=== PATIENT | female | born 1950 | race Caucasian/White ===

== ENCOUNTER 2017-04-23 06:31 | Day surgery (SDC) | payer OTHER ==
[~2017-04-23] VITALS: Ht 167.6 cm; Wt 95.5 kg
[2017-04-23] VITALS (8 sets, daily range): BP systolic 91–147; BP diastolic 44–90; PULSE 53–94; RESP 16–20; TEMP 97.5; O2SAT 91–96
[~2017-04-23 06:31] MED LIST: ASPI81; BENI20TA25; ESTR1.25; MEDR2.5; SERT100
[2017-04-23] MEDS ORDERED: GELATIN 12 MM/7 MM FOAM ONE (06:32)
[2017-04-23] MEDS ORDERED: LOSA100T PO (06:51)
[2017-04-23] MEDS ORDERED: SERT-132 PO (06:51)
[2017-04-23] MEDS ORDERED: SODIUM CHLOR 0.9% 1000 ML INJ 1,000 ML IV SCH (07:15)
[2017-04-23] MEDS ORDERED: MIDAZOLAM HCL 2 MG/2 ML VIAL ONE (07:27)
[2017-04-23] MEDS ORDERED: fentaNYL CITRATE 250 MCG/5 ML AMP ONE (07:27)
[2017-04-23] MEDS ORDERED: LIDOCAINE HCL 1% 20 ML VIAL ONE (07:48)
--- NOTE | 2017-04-23 08:48 | PD.RAD ---
Post CT Procedure Prog Note Pre Procedure Diagnosis: (1) Liver mass Post Procedure Diagnosis: (1) Liver mass Procedure Date: Apr 23, 2017 Supervising Radiologist: Jermaine Rhodes Proceduralist/Assist: evin jo Estimated blood loss: none Anesthesia: Conscious Sedation Plan of Activity Patient to Unit: [facility] Patient Condition: Good See PACS Report for procedural detail/treatment Jermaine Rhodes MD Apr 23, 2017 08:48
--- NOTE | 2017-04-23 15:48 | RADRPT ---
EXAM DATE/TIME: 04/23/2017 08:25 [facility] COMPARISON: No previous studies available for comparison. INDICATIONS : Liver mass. SEDATION TIME: 30 minutes BIOPSY SITE: Right flank MEDICATION(S): 1.) 2.5 mg midazolam (Versed) IV 2.) 125 mcg fentanyl (Sublimaze) IV DEVICE(S): 1.) 19 gauge micropuncture introducer 2.) 20 gauge Temno core biopsy needle MEDICAL HISTORY : Hernia, hiatal. Hypertension. Liver mass, gallstones. SURGICAL HISTORY : None. ENCOUNTER: Initial ACUITY: 1 day PAIN SCORE: 0/10 LOCATION: Right flank A total of three core specimen(s) were obtained and sent to the laboratory for pathologic evaluation. PROCEDURE: 1. CT guided liver biopsy. Prior to the procedure informed consent was obtained. Any appropriate prior imaging studies were rev iewed. Using automated exposure control and adjustment of the mA and/or kV according to patient size, radiat ion dose was kept as low as reasonably achievable to obtain optimal diagnostic quality images. DICOM format image data is available electronically for review and comparison. The site was prepped in a sterile fashion. Full sterile technique was used, including cap, mask, maria teresa rile gloves and gown and a large sterile sheet. Hand hygiene and 2% chlorhexidine and/or betadine/al cohol prep was utilized per protocol for cutaneous antisepsis. The skin and subcutaneous tissues wer e infiltrated with local anesthetic solution. With CT guidance the previously identified target was localized. Biopsy was performed using the presc ribed needle as above. Adequate hemostasis was obtained with compression at the puncture site. Follow-up CT scan reveals no hemorrhage. Gelfoam was injected into the needle tract after the conclus ion of the biopsy. The patient tolerated the procedure well and there were no complications. The patient was returned to the Radiology Outpatient Unit in stable condition. CONCLUSION: Uncomplicated CT guided biopsy of the large mass in the right lobe. Jermaine Rhodes MD on April 23, 2017 at 15:45 Board Certified Radiologist. This report was verified electronically.
== END 2017-04-23 13:00 | disposition home or self-care (01) ==
LOC: HRAD 06:31 → HRIP 06:33 → HRAD 13:00
PROVIDERS: ATTEND Internal Medicine Gastroenterology
DX: C78.7 Secondary malignant neoplasm of liver and intrahepatic bile duct (principal); C80.1 Malignant (primary) neoplasm, unspecified; I10 Essential (primary) hypertension; E78.5 Hyperlipidemia, unspecified; K44.9 Diaphragmatic hernia without obstruction or gangrene
CPT/HCPCS: 47000; 77012; 88307; 88341; 88342; J2250; J3010; J7030

== ENCOUNTER 2017-05-21 08:29 | Day surgery (SDC) | payer OTHER ==
[~2017-05-21] VITALS: Ht 167.6 cm; Wt 93.6 kg
[~2017-05-21 08:29] MED LIST changes: -ASPI81; -BENI20TA25; -ESTR1.25; +LOSA100T PO; -MEDR2.5; +SERT-132 PO; -SERT100
[2017-05-21 08:45] VITALS: BP 117/72; PULSE 67; RESP 20; TEMP 97.7; O2SAT 97
[2017-05-21 09:23] LABS: AUTOMATED NEUTROPHIL # 4.1 TH/MM3 (1.8-7.7); BASOPHIL # 0.1 TH/MM3 (0-0.2); EOSINOPHIL # 0.2 TH/MM3 (0-0.4); EOSINOPHIL % 2.6 % (0.0-4.0); HEMATOCRIT 42.4 % (35.0-46.0); HEMOGLOBIN 15.3 GM/DL (11.6-15.3); LYMPH % 28.6 % (9.0-44.0); LYMPHOCYTE # 1.9 TH/MM3 (1.0-4.8); MEAN CELL VOLUME 88.8 FL (80.0-100.0); MEAN PLATELET VOLUME 9.4 FL (7.0-11.0); MONO % 6.4 % (0.0-8.0); MONOCYTE # 0.4 TH/MM3 (0-0.9); NEUT % 61.4 % (16.0-70.0); PLATELET COUNT 235 TH/MM3 (150-450); RED BLOOD COUNT 4.78 MIL/MM3 (4.00-5.30); WHITE BLOOD COUNT 6.7 TH/MM3 (4.0-11.0)
[2017-05-21] MEDS ORDERED: SODIUM CHLORIDE 0.9% 1000 ML IV SCH (09:30)
[2017-05-21] MEDS ORDERED: ceFAZolin 2 GM PREMIX 50 ML - implanted port/tunneled catheter insertion IV SCH (09:30)
[2017-05-21] MEDS ORDERED: VANCOMYCIN 1000 MG/NS 250 ML - implanted port/tunneled catheter IV SCH ×2 (09:30)
[2017-05-21] MEDS ORDERED: CHLORHEXIDINE GLUCONATE 2 % 1 PACK (2 CLOTHS) TOPICAL SCH (09:30)
[2017-05-21] MEDS ORDERED: POVIDONE IODINE 5% (ANTISEPSIS KIT) 4 APPLICATIONS EACH NARE SCH (09:30)
[2017-05-21] MEDS ORDERED: MIDAZOLAM HCL 5 MG/5 ML VIAL ONE (10:47)
[2017-05-21] MEDS ORDERED: fentaNYL CITRATE 250 MCG/5 ML AMP ONE (10:47)
[2017-05-21] MEDS ORDERED: LIDOCAINE 1%/EPINEPHrine 1:100,000 SOLN 30 ML VIAL ONE (11:09)
[2017-05-21 11:53] VITALS: BP 121/69; PULSE 59; RESP 18; TEMP 98.7; O2SAT 93
--- NOTE | 2017-05-21 11:53 | PD.RAD ---
Post Procedure Progress Note Pre Procedure Diagnosis: (1) Liver mass Post Procedure Diagnosis: (1) Liver mass Procedure Date: May 21, 2017 Supervising Radiologist: Lars Banks Proceduralist/Assist: Ayden Santana RT(R), RT Serafin(R)() Anesthesia: Conscious Sedation Plan of Activity Patient to Unit: [facility] Patient Condition: Good See PACS Report for procedural detail/treatment Lars Banks MD May 21, 2017 11:53
[2017-05-21 12:08] VITALS: BP 120/71; PULSE 73; RESP 17; O2SAT 99
[2017-05-21 12:38] VITALS: BP 124/74; PULSE 57; RESP 18; O2SAT 98
[2017-05-21 13:48] VITALS: BP 120/72; PULSE 64; RESP 17; O2SAT 98
--- NOTE | 2017-05-21 14:31 | RADRPT ---
EXAM DATE/TIME: 05/21/2017 10:56 [facility] COMPARISON: No previous studies available for comparison. INDICATIONS : Patient with history of liver cancer in need of port placement for chemotherapy. MEDICAL HISTORY : 1.Liver cancer 2.HTN 3.Hiatal hernia 4.Depression 5.Cervical cancer 6.Arthritis SURGICAL HISTORY : 1.Cervical cone biopsy 2.Bilateral knee surgery 3.Tosillectomy 4. ENCOUNTER: Initial ACUITY: 1 week PAIN SCORE: 0/10 FLUORO TIME: 0.2 minutes IMAGE SERIES: 1 SEDATION TIME: 30 minutes ACCESS: Right internal jugular vein SEDATION: 1.) 2 mg midazolam (Versed) IV 2.) 100 mcg fentanyl (Sublimaze) IV Prophylactic antibiotics were administered with appropriate pre-procedure timing. Vancomycin within 2 hours of procedure, Ancef (or alternative) within 1 hour of procedure. DEVICE: 1. 8 [place]ian single lumen Bard Power Port PROCEDURE : 1. Continuous pulse oximetry and EKG monitoring. 2. Intravenous conscious sedation. 3. Ultrasound guidance for venous access. 4. Fluoroscopic guided implantable central venous port placement. The patient was placed supine. The neck was prepped in sterile fashion. Full sterile technique was u sed, including cap, mask, sterile gloves and gown, and a large sterile sheet. Hand hygiene and 2% ch lorhexidine Betadine was utilized per protocol for cutaneous antisepsis with appropriate dry time for site. Sterile gel and sterile probe cover were utilized for ultrasound guidance. The skin and sub cutaneous tissues were infiltrated with local anesthetic solution. Under direct ultrasound guidance, central venous access was accomplished in the targeted vessel. The ultrasound images depicting access guidance were stored and saved to PACS for permanent record. A s ubcutaneous pocket was created using blunt dissection. The port was introduced to the pocket. The c atheter tubing was fed through a subcutaneous tunnel to the venotomy site. The catheter tubing was c ut to a suitable length and then was introduced through a valved Peel-Away sheath and positioned with catheter tubing tip at the cavo-atrial junction level. The pocket incision was closed with subcutic ular Vicryl suture. Steri-Strips were applied. The port was flushed and locked with heparin solutio n per protocol. Sterile dressing was applied to the site. The patient tolerated the procedure well. Conscious sedation was performed with the prescribed dosages and duration as above in the presence of an independent trained radiology nurse to assist in the monitoring of the patient. EKG and oximetry remained stable throughout the procedure. The patient tolerated the procedure well and there were no complications. The patient was sent to post anesthesia recovery in stable condition. CONCLUSION: Uncomplicated ultrasound and fluoroscopic guided implanted central venous port catheter placement as described in detail above. An 8 Georgian Power port was placed. Lars Banks MD on May 21, 2017 at 14:30 Board Certified Radiologist. This report was verified electronically.
== END 2017-05-21 14:00 | disposition home or self-care (01) ==
LOC: HRIP 08:29 → HROP 08:29
PROVIDERS: ATTEND Internal Medicine Hematology
DX: Z45.2 Encounter for adjustment and management of vascular access device (principal); C22.1 Intrahepatic bile duct carcinoma; I10 Essential (primary) hypertension; K44.9 Diaphragmatic hernia without obstruction or gangrene
CPT/HCPCS: 36561; 76937; 77001; 85025; 85610; 85730; 99152; 99153; C1788; J0690; J1642; J2250; J3010; J3370; J7030; J7050